=== PATIENT | male | born 1935 | race Caucasian/White ===

== ENCOUNTER 2020-07-19 11:34 | Day surgery (SDC) | payer MEDICARE, OTHER ==
[2020-07-14 10:48] LABS: BASOPHILS # (AUTO) 0.1 X10'3 (0-0.2); EOSINOPHILS # (AUTO) 0.2 X10'3 (0-0.9); EOSINOPHILS % (AUTO) 3.2 % (0-6); HEMATOCRIT 40.2 % (42.0-52.0); HEMOGLOBIN 13.6 g/dl (14.0-17.9); LYMPHOCYTES % (AUTO) 19.4 % (21-51); MEAN CORPUSCULAR HEMOGLOBIN 32.2 PG (27.0-31.0); MEAN CORPUSCULAR HGB CONC 33.9 g/dL (33.0-36.5); MEAN CORPUSCULAR VOLUME 95.3 FL (78-98); MEAN PLATELET VOLUME 6.9 FL (7.4-10.4); MONOCYTES # (AUTO) 0.7 X10'3 (0-0.9); NEUTROPHILS # (AUTO) 3.2 X10'3 (1.8-7.7); NEUTROPHILS % (AUTO) 63.4 % (42-75); PLATELET COUNT 274 X10'3 (140-440); RED BLOOD COUNT 4.22 X10'6 (4.70-6.10); RED CELL DISTRIBUTION WIDTH 13.8 % (11.5-14.5)
[2020-07-14 10:56] LABS: ALBUMIN 3.8 G/DL (3.4-5.0); ANION GAP 10 (8-16); BLOOD UREA NITROGEN 14 MG/DL (7-18); BUN/CREATININE RATIO 22.2 (5.4-32.0); CALCIUM 8.5 MG/DL (8.5-10.1); CHLORIDE 98 MMOL/L (99-107); CREATININE 0.63 MG/DL (0.60-1.10); GLUCOSE 115 MG/DL (70-104); POTASSIUM 4.2 MMOL/L (3.5-5.1); SODIUM 133 MMOL/L (135-145); TOTAL CARBON DIOXIDE 25.3 MMOL/L (24-32); eGFR > 90 ML/MIN
[2020-07-14 11:01] LABS: PARTIAL THROMBOPLASTIN TIME 30 SECONDS (22-32)
[~2020-07-19] VITALS: Ht 167.6 cm; Wt 95.6 kg
[2020-07-19] VITALS (9 sets, daily range): BP systolic 98–142; BP diastolic 54–76
[~2020-07-19 11:34] MED LIST: AMLO1CAP PO; BISO1TAB39 PO; CHOL100010 PO; NORCO10T PO; OMEG1CAP54 PO
[2020-07-19] MEDS ORDERED: LIDOcaine/PRILOcaine 5gm cream TP ONE (11:50)
[2020-07-19] MEDS ORDERED: diphenhydrAMINE 25mg capsule PO PRN (11:50)
[2020-07-19] MEDS ORDERED: LORazepam 0.5 MG tablet PO PRN (11:50)
[2020-07-19] MEDS ORDERED: normal saline 1,000 ML IV SCH (11:50)
[2020-07-19] MEDS ORDERED: AZEL205. (11:53)
[2020-07-19] MEDS ORDERED: NITR0.4T51 (11:53)
[2020-07-19] MEDS ORDERED: METO-384 PO (11:53)
[2020-07-19] MEDS ORDERED: CLIN300C56 PO (11:53)
[2020-07-19] MEDS ORDERED: verapamil 2.5 mg/ml inj IV ONE (12:15)
[2020-07-19] MEDS ORDERED: nitroGLYCERIN-Tridil 50MG/D5W 250 ML IV ONE (12:15)
[2020-07-19] MEDS ORDERED: LIDOcaine 1% (10mg/ml)w/preservative injection 20ml MDV ONE (12:16)
[2020-07-19] MEDS ORDERED: heparin 1,000unit/ml 10ml vial 10 ML ONE (12:16)
[2020-07-19] MEDS ORDERED: iohexol 350MG/ML 100ml bottle IV ONE (12:16)
[2020-07-19] MEDS ORDERED: midazolam 1 mg/ML 2ml injection ONE (12:16)
[2020-07-19] MEDS ORDERED: fentaNYL/PF 50MCG/1 ML 2ML syringe ONE (12:16)
[2020-07-19] MEDS ORDERED: HYDROcodone/acetaminophen 5mg/325mg tablet PO PRN (14:40)
[2020-07-19] MEDS ORDERED: proCHLORperazine 10 MG/2 ml inj IV PRN (14:40)
[2020-07-19] MEDS ORDERED: OXAZEpam 15mg capsule PO PRN (14:40)
[2020-07-19] MEDS ORDERED: HYDROcodone/acetaminophen 10/325mg tab PO PRN (14:40)
[2020-07-19] MEDS ORDERED: ondansetron/PF 4mg/2ml inj IV PRN (14:40)
== END 2020-07-19 15:55 | disposition home or self-care (01) ==
LOC: SSTAY O 11:34
PROVIDERS: ATTEND Internal Medicine Interventional Cardiology
DX: R94.39 Abnormal result of other cardiovascular function study (principal); I35.0 Nonrheumatic aortic (valve) stenosis; I25.118 Atherosclerotic heart disease of native coronary artery with other forms of angina pectoris; I45.10 Unspecified right bundle-branch block; E87.1 Hypo-osmolality and hyponatremia; I10 Essential (primary) hypertension; E78.5 Hyperlipidemia, unspecified; G47.10 Hypersomnia, unspecified; E66.3 Overweight; Z68.33 Body mass index [BMI] 33.0-33.9, adult; Z79.899 Other long term (current) drug therapy; Z79.01 Long term (current) use of anticoagulants
CPT/HCPCS: 36415; 80048; 85025; 85610; 85730; 93005; 93454; 99152; C1769; C1894; J1644; J2001; J2250; J3010; J7030; Q0163; Q9967; 99153; A4620; A5120; J3490

== ENCOUNTER 2020-10-03 07:27 | Day surgery (SDC) | payer MEDICARE, OTHER ==
[~2020-10-03] VITALS: Ht 167.6 cm; Wt 93.9 kg
[~2020-10-03 07:27] MED LIST changes: +AMIO200T67 PO; -AMLO1CAP PO; +APIX5TAB3 PO; +ASPI-1071 PO; +ATOR10TA PO; +AZEL205. NAS; +BENZ-16 PO; -BISO1TAB39 PO; -CHOL100010 PO; +METO-384 PO; -NORCO10T PO; -OMEG1CAP54 PO
[2020-10-03] MEDS ORDERED: albumin 25% 100mL bottle x 1 IV PRN (07:50)
[2020-10-03] MEDS ORDERED: AMIO200T10 PO (08:26)
[2020-10-03] MEDS ORDERED: ASPI-1265 PO (08:26)
[2020-10-03] MEDS ORDERED: AZEL137S4 BOTHNARES (08:26)
[2020-10-03] MEDS ORDERED: ATOR10TA70 PO (08:26)
[2020-10-03] MEDS ORDERED: FURO40TA4 PO (08:26)
[2020-10-03] MEDS ORDERED: RIVA20TA PO (08:26)
[2020-10-03] MEDS ORDERED: METO50TA7 PO (08:26)
[2020-10-03] MEDS ORDERED: BENA10TA11 PO (08:26)
[2020-10-03 08:41] VITALS: BP 154/88
== END 2020-10-03 09:35 | disposition home or self-care (01) ==
LOC: SSTAY O 07:27
PROVIDERS: ATTEND Radiology Diagnostic Radiology
DX: J90 Pleural effusion, not elsewhere classified (principal); Z53.8 Procedure and treatment not carried out for other reasons; I25.119 Atherosclerotic heart disease of native coronary artery with unspecified angina pectoris; I48.19 Other persistent atrial fibrillation; E78.5 Hyperlipidemia, unspecified; I11.0 Hypertensive heart disease with heart failure; I50.30 Unspecified diastolic (congestive) heart failure; E87.1 Hypo-osmolality and hyponatremia; I34.0 Nonrheumatic mitral (valve) insufficiency; E66.9 Obesity, unspecified; Z68.33 Body mass index [BMI] 33.0-33.9, adult; Z79.82 Long term (current) use of aspirin; Z79.899 Other long term (current) drug therapy; Z96.653 Presence of artificial knee joint, bilateral; Z95.1 Presence of aortocoronary bypass graft; Z95.2 Presence of prosthetic heart valve; Z98.890 Other specified postprocedural states
CPT/HCPCS: 76604

== ENCOUNTER 2020-10-12 06:45 | Day surgery (SDC) | payer MEDICARE, OTHER ==
[2020-10-11 12:46] LABS: BASOPHILS # (AUTO) 0.1 X10'3 (0-0.2); BASOPHILS % (AUTO) 1.3 % (0-1); EOSINOPHILS # (AUTO) 0.2 X10'3 (0-0.9); EOSINOPHILS % (AUTO) 3.6 % (0-6); HEMATOCRIT 37.2 % (42.0-52.0); HEMOGLOBIN 12.3 g/dl (14.0-17.9); LYMPHOCYTES # (AUTO) 0.6 X10'3 (1.1-4.8); LYMPHOCYTES % (AUTO) 9.2 % (21-51); MEAN CORPUSCULAR HEMOGLOBIN 30.1 PG (27.0-31.0); MEAN CORPUSCULAR VOLUME 91.2 FL (78-98); MEAN PLATELET VOLUME 6.5 FL (7.4-10.4); MONOCYTES # (AUTO) 0.8 X10'3 (0-0.9); MONOCYTES % (AUTO) 11.9 % (2-12); NEUTROPHILS # (AUTO) 4.8 X10'3 (1.8-7.7); PLATELET COUNT 322 X10'3 (140-440); RED BLOOD COUNT 4.08 X10'6 (4.70-6.10); RED CELL DISTRIBUTION WIDTH 15.9 % (11.5-14.5); WHITE BLOOD COUNT 6.4 X10'3 (4.5-11.0)
[2020-10-11 13:03] LABS: ALBUMIN 3.6 G/DL (3.4-5.0); ANION GAP 9 (8-16); BLOOD UREA NITROGEN 11 MG/DL (7-18); BUN/CREATININE RATIO 12.8 (5.4-32.0); CALCIUM 8.3 MG/DL (8.5-10.1); CHLORIDE 98 MMOL/L (99-107); CREATININE 0.86 MG/DL (0.60-1.10); GLUCOSE 114 MG/DL (70-104); POTASSIUM 4.2 MMOL/L (3.5-5.1); SODIUM 134 MMOL/L (135-145); TOTAL CARBON DIOXIDE 27.4 MMOL/L (24-32); eGFR 85 ML/MIN
[~2020-10-12] VITALS: Ht 167.6 cm; Wt 93.3 kg
[2020-10-12] VITALS (12 sets, daily range): BP systolic 130–176; BP diastolic 59–99
[~2020-10-12 06:45] MED LIST changes: +AMIO200T10 PO; -AMIO200T67 PO; -APIX5TAB3 PO; -ASPI-1071 PO; +ASPI-1265 PO; -ATOR10TA PO; +ATOR10TA70 PO; +AZEL137S4 BOTHNARES; -AZEL205. NAS; +BENA10TA11 PO; -BENZ-16 PO; +FURO40TA4 PO; -METO-384 PO; +METO50TA7 PO; +RIVA20TA PO
[2020-10-12] MEDS ORDERED: atropine 0.1mg/ml 10ml syringe IV ONE (07:10)
[2020-10-12] MEDS ORDERED: MIDAZolam 1mg/ml 10ml vial IV ONE (07:10)
[2020-10-12] MEDS ORDERED: amiodarone 150mg/dext, iso-os 100 ML IV ONE (07:10)
[2020-10-12] MEDS ORDERED: diphenhydrAMINE 25mg capsule PO ONE (07:10)
[2020-10-12] MEDS ORDERED: LORazepam 0.5 MG tablet PO ONE (07:10)
[2020-10-12] MEDS ORDERED: morphine 10mg/ml inj. IV ONE (07:10)
== END 2020-10-12 10:42 | disposition home or self-care (01) ==
LOC: SSTAY O 06:45
PROVIDERS: ATTEND Internal Medicine Cardiovascular Disease
DX: I48.19 Other persistent atrial fibrillation (principal); I25.10 Atherosclerotic heart disease of native coronary artery without angina pectoris; E78.5 Hyperlipidemia, unspecified; I34.0 Nonrheumatic mitral (valve) insufficiency; M19.90 Unspecified osteoarthritis, unspecified site; E87.1 Hypo-osmolality and hyponatremia; I11.0 Hypertensive heart disease with heart failure; I50.9 Heart failure, unspecified; Z95.1 Presence of aortocoronary bypass graft; Z79.82 Long term (current) use of aspirin; Z79.899 Other long term (current) drug therapy; Z95.2 Presence of prosthetic heart valve; Z96.653 Presence of artificial knee joint, bilateral; Z98.890 Other specified postprocedural states
CPT/HCPCS: 36415; 80048; 85025; 85610; 92960; 93005; J2250; J2270

== ENCOUNTER 2020-11-24 06:50 | Outpatient (CLI) | payer MEDICARE, OTHER | END 2020-11-24 23:59 | disposition home or self-care (01) | LOC: RT 06:50 | PROVIDERS: ATTEND Internal Medicine Cardiovascular Disease | DX: R94.2 Abnormal results of pulmonary function studies (principal); Z79.899 Other long term (current) drug therapy | CPT/HCPCS: 94010; 94727; 94729 ==

== ENCOUNTER 2022-04-02 07:42 | Day surgery (SDC) | payer MEDICARE, OTHER ==
[2022-03-30 10:39] LABS: BASOPHILS % (AUTO) 0.6 % (0-1); EOSINOPHILS # (AUTO) 0.2 X10'3 (0-0.9); EOSINOPHILS % (AUTO) 2.9 % (0-6); HEMATOCRIT 35.6 % (42.0-52.0); HEMOGLOBIN 11.8 g/dl (14.0-17.9); LYMPHOCYTES # (AUTO) 0.7 X10'3 (1.1-4.8); LYMPHOCYTES % (AUTO) 9.5 % (21-51); MEAN CORPUSCULAR HGB CONC 33.3 g/dL (33.0-36.5); MEAN CORPUSCULAR VOLUME 87.1 FL (78-98); MONOCYTES # (AUTO) 0.8 X10'3 (0-0.9); MONOCYTES % (AUTO) 10.5 % (2-12); NEUTROPHILS # (AUTO) 5.6 X10'3 (1.8-7.7); NEUTROPHILS % (AUTO) 76.5 % (42-75); PLATELET COUNT 481 X10'3 (140-440); RED BLOOD COUNT 4.09 X10'6 (4.70-6.10); RED CELL DISTRIBUTION WIDTH 15.2 % (11.5-14.5); WHITE BLOOD COUNT 7.4 X10'3 (4.5-11.0)
[2022-03-30 10:44] LABS: ALBUMIN 3.1 G/DL (3.4-5.0); BLOOD UREA NITROGEN 14 MG/DL (7-18); BUN/CREATININE RATIO 19.7 (5.4-32.0); CALCIUM 8.6 MG/DL (8.5-10.1); CHLORIDE 93 MMOL/L (99-107); CREATININE 0.71 MG/DL (0.60-1.10); GLUCOSE 120 MG/DL (70-104); POTASSIUM 4.2 MMOL/L (3.5-5.1); TOTAL CARBON DIOXIDE 29.8 MMOL/L (24-32); eGFR > 90 ML/MIN
[2022-03-30 10:48] LABS: ANION GAP 5 (8-16); SODIUM 128 MMOL/L (135-145)
[~2022-04-02] VITALS: Ht 167.6 cm; Wt 93.1 kg
[2022-04-02] VITALS (12 sets, daily range): BP systolic 129–170; BP diastolic 62–90
[2022-04-02] MEDS ORDERED: LORazepam 0.5 MG tablet PO ONE (08:05)
[2022-04-02] MEDS ORDERED: normal saline 1000ml 1,000 ML IV SCH (08:05)
[2022-04-02] MEDS ORDERED: MIDAZolam 1mg/ml 10ml vial IV ONE (08:05)
[2022-04-02] MEDS ORDERED: amiodarone 150mg/dext, iso-os 100 ML IV ONE (08:05)
[2022-04-02] MEDS ORDERED: morphine 10mg/ml inj. IV ONE (08:05)
[2022-04-02] MEDS ORDERED: diphenhydrAMINE 25mg capsule PO ONE (08:05)
[2022-04-02] MEDS ORDERED: APIX5TAB3 PO (08:23)
[2022-04-02] MEDS ORDERED: atropine 0.1mg/ml 10ml syringe IV ONE (10:00)
[2022-04-02] MEDS ORDERED: potassium Cl 20 mEq SR tablet PO STA (12:07)
[2022-04-02] MEDS ORDERED: furosemide 40mg/4ml inj IV ONE (12:10)
== END 2022-04-02 13:45 | disposition home or self-care (01) ==
LOC: SSTAY O 07:42
PROVIDERS: ATTEND Internal Medicine Cardiovascular Disease
DX: I48.0 Paroxysmal atrial fibrillation (principal); E78.5 Hyperlipidemia, unspecified; I11.0 Hypertensive heart disease with heart failure; I50.30 Unspecified diastolic (congestive) heart failure; C80.1 Malignant (primary) neoplasm, unspecified; I25.119 Atherosclerotic heart disease of native coronary artery with unspecified angina pectoris; I35.0 Nonrheumatic aortic (valve) stenosis; Z82.49 Family history of ischemic heart disease and other diseases of the circulatory system; Z95.1 Presence of aortocoronary bypass graft; Z96.653 Presence of artificial knee joint, bilateral; Z98.890 Other specified postprocedural states; Z79.01 Long term (current) use of anticoagulants; Z79.82 Long term (current) use of aspirin; Z79.899 Other long term (current) drug therapy
CPT/HCPCS: 36415; 80048; 83880; 85025; 85610; 92960; 93005; J1940; J2250; J2274; J7030

== ENCOUNTER 2024-09-03 13:56 | Outpatient (CLI) | payer MEDICARE, OTHER ==
[~2024-09-03 13:56] MED LIST changes: +APIX5TAB3 PO; -AZEL137S4 BOTHNARES; +BENA-7 PO; -BENA10TA11 PO; -FURO40TA4 PO; +HYDR-3972 PO; +METO-384 PO; -METO50TA7 PO; -RIVA20TA PO
[2024-09-03] MEDS: albuterol 2.5 MG/3 ML nebule NEB ONE (15:13)
[2024-09-03 15:19] VITALS: PULSE 66; RESP 16; O2SAT 98
[2024-09-03 15:30] VITALS: PULSE 76; RESP 16
--- NOTE | 2024-09-04 17:11 | PROCEDURE NOTE - Respiratory ---
Procedure Note-Respiratory Providers to Copies To 1: MARCI WILLARD MD; RHONDA LOUIS MD Procedure Name: This is a complete pulmonary function study dated September 03, 2024. Hemoglobin measurement was done as part of the study. Spirometry measurements: There is substantial reduction in both the forced vital capacity and the FEV1. The FEV1 ratio is also somewhat reduced. All of the measured flow rates show substantial reduction. After bronchodilator was administered the FEV1 and some of the flow rates show a bit of improvement. Lung volume measurements: The total lung capacity is significantly reduced. Lung diffusion measurement: The DLCO is in the lower range of normal. It is noted that the hemoglobin measurement is in the normal range. Airway resistance measurement: The airway resistance is clearly elevated. Conclusion: This study is abnormal. 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 A restrictive pulmonary process may be seen in diseases involving the interstitial aspect of the lungs such as asbestosis or interstitial pulmonary edema. Diseases involving the pleura such as pleural effusion may also give a significant restrictive ventilatory defect. Clinical correlation is suggested. In addition the patient has evidence of obstructive ventilatory defect. The obstructive processes in the [id number] category and seems to respond slightly to inhaled bronchodilator. The lung diffusion capacity is in the normal range. We have previous studies for comparison dated November 24, 2020. Over the past four years the vital capacity has decreased from 2.2 L to 1.6 L. the FEV1 has deteriorated from 1.5 L to 1.2 L. the DLCO measurement has deteriorated from 17 down to 13. Close pulmonary follow-up is recommended for this patient with abnormal lung function which shows slow deterioration over the past four years. NATALY STRANGE MD Sep 04, 2024 17:11
== END 2024-09-03 23:59 | disposition home or self-care (01) ==
LOC: RT 13:56
PROVIDERS: ATTEND Internal Medicine
DX: J98.4 Other disorders of lung (principal)
CPT/HCPCS: 85018; 94060; 94727; 94729; 94760